=== PATIENT | female | born 1975 | race Caucasian/White ===

== ENCOUNTER → 2017-06-12 | Outpatient (CLI) | payer BC ==
[~2017-06-12] MED LIST: CONCERTA PO; INHALER; PREDNISONE PO; PROCARDIA XL PO; TRAZODONE PO; ZOLOFT PO
--- NOTE | ~2017-06-12 | CT71 ---
[facility] A Service of [facility] [place] RADIOLOGY TEXT RESULTS PATIENT: JAI TALAVERA LOCATION: [facility] : 77 UNIT #: [id number] AGE: [address]: Maria Fernanda Bauman APRN SEX: F ORDER DR: [id number] [facility] [address] [place], [place] [address] [id number] O MR#: [id number] Acc #: [id number] NAME: JAI TALAVERA : 1975 SEX: F STUDY DATE/TIME: 06/12/2017 16:14 UNIT: [facility] ROOM: STUDY DESCRIPTION: CT Head Wo Contrast Attending Physician: Maria Fernanda Bauman A.P.R.N. Referring Physician: Maria Fernanda Bauman A.P.R.N. Ordering Physician: Maria Fernanda Bauman A.P.R.N. Primary Care Physician: Maria Fernanda Bauman A.P.R.N. MEDICAL IMAGING REPORT This report is preliminary unless electronic signature is present EXAM CT brain without contrast HISTORY Headache for 1 week. Blurred vision. Lightheaded. FINDINGS This CT exam was performed with one or more of the following radiation dose reduction techniques: Automatic exposure control, adjustment of mA and/or kV according to patient size, and iterative reconstruction. 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 This is likely incidental. No hydrocephalus. No ventricular displacement. No intracranial hemorrhage. No atrophy or midline shift or intracranial hemorrhage or edema. 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 No hydrocephalus. Remainder of the brain is negative. Consider followup MRI brain in 12 months, unless there are older outside studies to document long-term stability. Dictated by... Landon Medina M.D. THIS IS AN ELECTRONICALLY VERIFIED REPORT Landon Medina M.D. at 06/13/2017 4:06 PM DFL/seb TD: 06/13/2017 04:24 JOB #: [id number] MEDICAL IMAGING REPORT [facility] A Service of [facility] [place] RADIOLOGY TEXT RESULTS PATIENT: JAI TALAVERA LOCATION: [facility] : 77 UNIT #: [id number] AGE: [address]: Maria Fernanda Bauman APRN SEX: F ORDER DR: Page 1 of 1 COPY
== END | disposition home or self-care (01) ==
LOC: CCAT 15:40
DX: R51 Headache (principal); I10 Essential (primary) hypertension; R11.0 Nausea; G93.0 Cerebral cysts
CPT/HCPCS: 70450